=== PATIENT | female | born 1945 | race Caucasian/White ===

== ENCOUNTER → 2017-05-27 | Outpatient (CLI) | payer OTHER ==
[~2017-05-27] MED LIST: ANTIOXIDANT PO; ASPI325T45 PO; ENOX40IN SQ; FRS/40 PO; HYDR1TAB2 PO; LEVO-217 PO; MULTTAB PO; VSC/5 PO
--- NOTE | 2017-05-27 10:54 | DIAGNOSTIC IMAGING REPORT ---
(RENAL)RETROPERITONEAL COMP HISTORY: 71 years-old Female HEMATURIA COMPARISON: None available TECHNIQUE: Multiple real-time sonographic images of the bilateral kidneys and urinary bladder were obtained assessing grayscale appearance and color flow FINDINGS: The exam is limited secondary to patient body habitus. Right kidney measures 9.4 x 4.8 x 4.8 cm. There are no right-sided renal calculi, hydronephrosis or focal mass lesions identified. Parenchyma appears within normal limits. Partially imaged liver appears echogenic suggesting fatty infiltration. Left kidney measures 10.8 x 5.9 x 6.8 cm. There are no left-sided renal calculi, hydronephrosis or focal mass lesion is identified. Parenchyma appears unremarkable. Bilateral ureteral jets identified within a partially collapsed urinary bladder. IMPRESSION: 1. Mildly limited exam secondary to patient body habitus. 2. Unremarkable sonographic appearance of the bilateral kidneys without renal calculi or hydronephrosis. 3. Probable fatty infiltration of the liver. The above report was generated using voice recognition software. It may contain grammatical, syntax or spelling errors. Electronically signed by: Christopher Lynn M.D. 05/27/2017 10:53 AM Dictated Date/Time: 05/27/2017 10:50 AM
== END | disposition home or self-care (01) ==
LOC: C.ULTR 10:21
PROVIDERS: ATTEND Urology
DX: R31.9 Hematuria, unspecified (principal); N39.41 Urge incontinence